=== PATIENT | female | born 1965 | race Caucasian/White ===

== ENCOUNTER 2021-05-29 11:50 | Outpatient (CLI) | payer MEDICAID, SELFPAY ==
[2021-05-29 12:02] VITALS: BP 132/65; PULSE 60; RESP 16; TEMP 36.6; O2SAT 93; BMI 35.5
[2021-05-29 13:20] VITALS: BP 133/70; PULSE 58; RESP 18; O2SAT 97
[2021-05-29 14:31] VITALS: BP 136/73; PULSE 60; RESP 18; TEMP 36.5; O2SAT 99
--- NOTE | 2021-06-03 19:05 | PC.SOCIAL ---
10-1, 8801 antibody infusion follow up call: symptoms prior to infusion: headache, body chills, weakness patient reports all symptoms have improved but she still doesn't have an appetite
== END 2021-05-29 11:51 | disposition home or self-care (01) ==
LOC: OPS 11:54
PROVIDERS: PCP Nurse Practitioner; Visit Provider Nurse Practitioner
DX: U07.1 COVID-19 (principal); J44.9 Chronic obstructive pulmonary disease, unspecified; K86.1 Other chronic pancreatitis; I10 Essential (primary) hypertension; E11.9 Type 2 diabetes mellitus without complications
CPT/HCPCS: 96365